=== PATIENT | female | born 1965 | race Caucasian/White ===

== ENCOUNTER 2018-02-13 09:33 | Emergency (ER) | payer OTHER ==
[~2018-02-13] VITALS: Ht 162.6 cm; Wt 63.5 kg
[~2018-02-13 09:33] MED LIST: LEXAPRIL PO; TRAZ-147 PO; [UNRECOGNIZED DRUG - OTHER] PO
--- NOTE | 2018-02-13 10:25 | NUR ---
PATIENT WAS SEEN BY MD. XRAYS DONE. DC AND FOLLOW UP INSTRUCTIONS GIVEN AND EXPLAINED TO PATIENT WHO STATES SHE UNDERSTANDS ALL INSTRUCTIONS.
== END 2018-02-13 10:28 | disposition home or self-care (01) ==
LOC: ER 09:33
DX: S80.11XA Contusion of right lower leg, initial encounter (principal); J45.909 Unspecified asthma, uncomplicated; Z88.2 Allergy status to sulfonamides; Z79.891 Long term (current) use of opiate analgesic; Z79.899 Other long term (current) drug therapy; W21.04XA Struck by golf ball, initial encounter; Y92.89 Other specified places as the place of occurrence of the external cause; Y99.8 Other external cause status; Y93.53 Activity, golf
CPT/HCPCS: 73590; A4663